=== PATIENT | female | born 1955 | race Caucasian/White ===

== ENCOUNTER 2021-08-02 18:38 | Inpatient (IN) | payer MEDICARE, MEDICAID ==
[~2021-08-02] VITALS: Ht 172.7 cm; Wt 95.3 kg
[2021-08-02] MEDS ORDERED: MILK OF MAGNESIA 400 MG/5 ML 30 ML UDC PO PRN (20:00)
[2021-08-02] MEDS ORDERED: ACETAMINOPHEN 325 MG TABLET PO PRN (20:00)
[2021-08-02] MEDS ORDERED: diphenhydrAMINE 50 MG/ML INJ (BENADRYL) IVP PRN (20:00)
[2021-08-02] MEDS ORDERED: ONDANSETRON 4 MG (ZOFRAN) ORAL DISSOLVE TAB PO PRN (20:00)
[2021-08-02] MEDS ORDERED: ANTACID SUSP 30 ML UDC (MYLANTA) PO PRN (20:00)
[2021-08-02] MEDS ORDERED: MELATONIN 3 MG TABLET PO PRN (20:00)
[2021-08-02] MEDS ORDERED: LACTULOSE SYRUP 10GM/15ML (ENULOSE) 30ML UDC PO PRN (20:00)
[2021-08-02] MEDS ORDERED: BISACODYL 10 MG SUPP (DULCOLAX) PR PRN (20:00)
[2021-08-02] MEDS ORDERED: PATIENT MAY USE OWN MEDS, ALL PO SCH (20:00)
[2021-08-02] MEDS ORDERED: polyethylene glycoL POWDER 17 GM (MIRALAX) PACK PO PRN (20:00)
[2021-08-02] MEDS ORDERED: CALCIUM CARBONATE 500 MG (TUMS) TAB.CHEW PO PRN (20:00)
[2021-08-02] MEDS ORDERED: diphenhydrAMINE 25 MG TAB (BENADRYL) PO PRN (20:00)
[2021-08-02] MEDS ORDERED: HYDROcodone/APAP 5 MG/325 MG (LORTAB) TAB PO PRN (20:00)
[2021-08-02] MEDS ORDERED: HYDROmorphone 2 MG/ML VIAL (DILAUDID) IVP PRN (20:00)
[2021-08-02] MEDS: DOCUSATE SODIUM 100 MG (COLACE) CAP PO SCH (22:51)
[2021-08-02] MEDS: SENNOSIDES 8.6 MG (SENOKOT) TAB PO SCH (22:52)
[2021-08-02] MEDS ORDERED: DIAZ2TAB2 PO (22:57)
[2021-08-02] MEDS ORDERED: ATEN50TA PO (22:57)
[2021-08-02] MEDS ORDERED: LEVO88CA4 PO (22:58)
[2021-08-02] MEDS ORDERED: RABE20TA30 PO (22:58)
[2021-08-02] MEDS ORDERED: PROM25TA14 PO (22:58)
[2021-08-03] MEDS: FAMOTIDINE 20 MG (PEPCID) TABLET PO SCH ×3 (01:07→21:37)
[2021-08-03] MEDS: guaiFENesin (MUCINEX) 600 MG TAB PO SCH ×3 (01:07→21:37)
[2021-08-03] MEDS: inSUlin ASPART (NovoLOG) 1 UNIT/0.01 ML (CHARGE PER UNIT) SC SCH ×5 (01:10→21:38)
[2021-08-03 05:31] LABS: BASOPHILS % (AUTO) 0 % (0-10); EOSINOPHILS % (AUTO) 0 % (0-10); HEMATOCRIT 38 % (35-52); HEMOGLOBIN 12.8 g/dL (11.5-16.0); LYMPHOCYTES # (AUTO) 0.5 10^3/uL (1.0-4.0); LYMPHOCYTES % (AUTO) 23 % (12-44); MEAN CORPUSCULAR HEMOGLOBIN 28 pg (25-34); MEAN CORPUSCULAR HGB CONC 34 g/dL (32-36); MEAN CORPUSCULAR VOLUME 84 fL (80-99); MEAN PLATELET VOLUME 10.1 fL (9.0-12.2); MONOCYTES # (AUTO) 0.3 10^3/uL (0.0-1.0); MONOCYTES % (AUTO) 11 % (0-12); NEUTROPHILS # (AUTO) 1.5 10^3/uL (1.8-7.8); NEUTROPHILS % (AUTO) 66 % (42-75); PLATELET COUNT 262 10^3/uL (130-400); WHITE BLOOD COUNT 2.3 10^3/uL (4.3-11.0)
[2021-08-03 05:41] LABS: ALBUMIN 3.3 GM/DL (3.2-4.5)
[2021-08-03 05:42] LABS: POTASSIUM 3.5 MMOL/L (3.6-5.0)
[2021-08-03 05:43] LABS: CALCIUM 8.5 MG/DL (8.5-10.1)
[2021-08-03 05:44] LABS: TOTAL PROTEIN 6.5 GM/DL (6.4-8.2)
[2021-08-03 05:46] LABS: BILIRUBIN,TOTAL 0.7 MG/DL (0.1-1.0)
[2021-08-03 05:48] LABS: CREATININE SERUM 0.62 MG/DL (0.60-1.30)
--- NOTE | 2021-08-03 06:15 | History & Physical-Hospitalist ---
History of Present Illness HPI/Chief Complaint Chief complaint: Acute hypoxic respiratory failure History of present illness: This is a 65-year-old white female who presented from [facility] due to their diversion status with shortness of breath and cough and fever. She is unvaccinated. She was placed on 4 L of oxygen with good results. She is on day #9 today of COVID. She was placed on protocol and will be monitored closely. Her cough is significant and she desats with cough and any activity. High risk for intubation. Source: patient, RN/MD Exam Limitations: clinical condition Date Seen 08/03/21 Time Seen by a Provider: 10:00 Attending Physician Marguerite Styles DO PCP No,Local Physician Referring Physician Date of Admission Aug 02, 2021 at 22:24 Home Medications & Allergies Home Medications Reviewed patient Home Medication Reconciliation performed by pharmacy medication reconciliations process mold technician and/or nursing. Patients Allergies have been reviewed. Allergies Allergies Coded Allergies Penicillins (Verified Allergy, Unknown, 08/02/21) Sulfa (Sulfonamide Antibiotics) (Verified Allergy, Unknown, 08/02/21) erythromycin base (Verified Allergy, Unknown, 08/02/21) morphine (Verified Allergy, Unknown, 08/02/21) Past Osjliim-Qzcfwk-Upypbs Hx Patient Social History Marrital Status: single Employed/Student: retired Tobacco Use?: No Smoking Status: Former Smoker Smokeless Tobacco Frequency: Never a User Use of E-Cig and/or Vaping dev: No Substance use?: No Alcohol Use?: No Pt feels they are or have been: No Immunizations Up To Date Date of Influenza Vaccine: Jul 21, 2021 Current Status status: No status: No Advance Directives: No Communicates: Verbally Primary Language: Spanish Preferred Spoken Language: Spanish Is interpretation needed?: No Sensory deficits: Vision impairment Implanted or Applied Medical D: None Past Medical History Gastroesophageal Reflux Hypothyroidsim Anxiety, Depression Review of Systems Constitutional: see HPI, dizziness, fever, malaise, weakness EENTM: no symptoms reported Respiratory: dyspnea on exertion, short of breath Cardiovascular: no symptoms reported Gastrointestinal: no symptoms reported Genitourinary: no symptoms reported Musculoskeletal: no symptoms reported Skin: no symptoms reported Psychiatric/Neurological: No Symptoms Reported All Other Systems Reviewed Negative Unless Noted: Yes Physical Exam Physical Exam Vital Signs Vital Signs - First Documented 08/02/21 08/02/21 22:25 22:58 Pulse 63 Resp 22 B/P (MAP) 137/66 Pulse Ox 93 Capillary Refill : Height, Weight, BMI Height: '" Weight: lbs. oz. kg; 30.67 BMI Method: General Appearance: Anxious, Chronically ill, Mild Distress, Obese Eyes: Right Eye Normal Inspection, Right Eye PERRL HEENT: PERRL/EOMI, Normal ENT Inspection, Pharynx Normal, Moist Mucous Membranes Neck: Full Range of Motion, Normal Inspection, Non Tender Respiratory: Chest Non Tender, No Respiratory Distress, Accessory Muscle Use, Crackles, Decreased Breath Sounds, Wheezing Cardiovascular: Regular Rate, Rhythm, No Edema, No Gallop, No JVD, No Murmur, Normal Peripheral Pulses Gastrointestinal: Normal Bowel Sounds, No Organomegaly, No Pulsatile Mass, Non Tender, Soft Back: Normal Inspection, No CVA Tenderness, No Vertebral Tenderness Extremity: Normal Capillary Refill, Normal Inspection, Normal Range of Motion, Non Tender, No Calf Tenderness, No Pedal Edema Neurologic/Psychiatric: Alert, Oriented x3, No Motor/Sensory Deficits, Normal Mood/Affect Skin: Normal Color, Warm/Dry Lymphatic: No Adenopathy Results Results/Procedures Labs Laboratory Tests 08/03/21 05:17 Patient resulted labs reviewed. Assessment/Plan Admission Diagnosis Assessment: Acute hypoxic respiratory failure COVID-19 pneumonia Hypothyroidism GERD Obesity Former smoker Anxiety Plan: Oxygen COVID protocol High risk for intubation If progresses and declines will need Actemra Admission Status: Inpatient Order (span 2 midnights) Reason for Inpatient Admission: Respiratory failure MARGUERITE STYLES DO Aug 03, 2021 06:15
[2021-08-03] MEDS: ENOXAPARIN 40 MG/0.4 ML (LOVENOX) SYR SC SCH (06:56)
[2021-08-03] MEDS: RT-ALBUTEROL HFA 8.5 GM INHALER IH SCH ×4 (07:28→19:05)
[2021-08-03 07:34] LABS: ABG BASE EXCESS 0.3 MMOL/L (-2.5-2.5); ABG OXYGEN SATURATION 90 % (94-100); ABG PCO2 34 MMHG (35-45); ABG PH 7.46 (7.37-7.43); ABG PO2 52 MMHG (79-93); ABG TCO2 24.9 MMOL/L (21.0-31.0)
[2021-08-03 07:36] LABS: ALLENS TEST YES-POS; INSPIRED O2 6 L; PATIENT TEMP 36.4; VENTILATOR NO
--- NOTE | 2021-08-03 07:45 | Diagnostic Imaging Report ---
CHEST 1 VIEW, AP/PA ONLY Indication: Pneumonia Comparison: None available. Findings: Multifocal irregular consolidations are present in both lungs, with a peripheral predominance. No pleural effusion or pneumothorax. Low lung volumes. Posterior lower lobes are poorly evaluated by portable radiography. Normal cardiac silhouette. Impression: 1. Bilateral multifocal pulmonary opacities are likely the basis of pneumonia. A component of underlying pulmonary fibrosis could be present. Advise followup PA and lateral chest radiographs in 4 weeks after appropriate medical management to ensure resolution. Dictated by: Dictated on workstation # [id number]
[2021-08-03] MEDS: DOCUSATE SODIUM 100 MG (COLACE) CAP PO SCH ×2 (10:33→21:37)
[2021-08-03] MEDS: KCL 10 MEQ TAB (MICRO K) PO SCH (10:33)
[2021-08-03] MEDS: SENNOSIDES 8.6 MG (SENOKOT) TAB PO SCH ×2 (10:33→21:37)
[2021-08-03] MEDS: NS IV 1000 ML 1,000 ML IV SCH (12:39)
[2021-08-03] MEDS ORDERED: guaiFENesin/CODEINE (ROBITUSSIN AC) 10ML UDC PO SCH (13:00)
[2021-08-04] MEDS: ONDANSETRON 4 MG/2 ML (SDV) Z0FRAN IV PRN (00:46)
[2021-08-04] MEDS: NS IV 1000 ML 1,000 ML IV SCH ×2 (00:51→13:22)
[2021-08-04 04:59] LABS: BASOPHILS % (AUTO) 0 % (0-10); EOSINOPHILS % (AUTO) 0 % (0-10); HEMATOCRIT 37 % (35-52); HEMOGLOBIN 12.4 g/dL (11.5-16.0); LYMPHOCYTES # (AUTO) 0.6 10^3/uL (1.0-4.0); LYMPHOCYTES % (AUTO) 11 % (12-44); MEAN CORPUSCULAR HEMOGLOBIN 29 pg (25-34); MEAN CORPUSCULAR HGB CONC 33 g/dL (32-36); MEAN CORPUSCULAR VOLUME 85 fL (80-99); MEAN PLATELET VOLUME 10.2 fL (9.0-12.2); MONOCYTES # (AUTO) 0.3 10^3/uL (0.0-1.0); MONOCYTES % (AUTO) 6 % (0-12); NEUTROPHILS # (AUTO) 4.2 10^3/uL (1.8-7.8); NEUTROPHILS % (AUTO) 83 % (42-75); PLATELET COUNT 343 10^3/uL (130-400)
[2021-08-04 05:16] LABS: POTASSIUM 3.2 MMOL/L (3.6-5.0)
[2021-08-04 05:17] LABS: CALCIUM 8.3 MG/DL (8.5-10.1)
[2021-08-04 05:18] LABS: TOTAL PROTEIN 5.7 GM/DL (6.4-8.2)
[2021-08-04 05:20] LABS: BILIRUBIN,TOTAL 0.5 MG/DL (0.1-1.0)
[2021-08-04 05:22] LABS: CREATININE SERUM 0.69 MG/DL (0.60-1.30)
[2021-08-04] MEDS: KCL 10 MEQ TAB (MICRO K) PO SCH (06:41)
[2021-08-04] MEDS: inSUlin ASPART (NovoLOG) 1 UNIT/0.01 ML (CHARGE PER UNIT) SC SCH ×4 (06:41→21:13)
[2021-08-04] MEDS: ENOXAPARIN 40 MG/0.4 ML (LOVENOX) SYR SC SCH (06:41)
[2021-08-04] MEDS: RT-ALBUTEROL HFA 8.5 GM INHALER IH SCH ×4 (07:07→20:57)
[2021-08-04] MEDS: DOCUSATE SODIUM 100 MG (COLACE) CAP PO SCH ×2 (07:37→21:13)
[2021-08-04] MEDS ORDERED: dilTIAZem DRIP PRE-MIX 125 ML IV ONE (07:38)
[2021-08-04] MEDS: SENNOSIDES 8.6 MG (SENOKOT) TAB PO SCH ×2 (07:38→21:13)
[2021-08-04] MEDS ORDERED: dilTIAZem DRIP PRE-MIX 125 ML IV SCH (07:45)
[2021-08-04] MEDS: guaiFENesin (MUCINEX) 600 MG TAB PO SCH ×2 (08:10→21:12)
[2021-08-04] MEDS: FAMOTIDINE 20 MG (PEPCID) TABLET PO SCH ×2 (08:10→21:12)
--- NOTE | 2021-08-04 09:25 | Consultation-Cardiology ---
HPI-Cardiology Cardiology Consultation: Date of Consultation 08/04/21 Time Seen by a Provider: 08:50 Date of Admission 08-02-21 Attending Physician Jesusita Castillo MD Admitting Physician No,Local Physician Consulting Physician Nicole Wallace MD HPI: Chief Complaint: A-fib with RVR Ms. Mart is a 65 yr old female admitted to [facility] with COVID pneumonia. This morning she had an episode of a-fib with RVR; new onset. She reports she began to feel unwell approx 4-5 days ago. She states she had increasing SOB. She presented to the walk in clinic and was found to test positive for COVID. She reports frequent cough of thick sputum. She reports occ episodes of palpitations which she feels are only r/t to high caffeine intake. She denies any c/o CP. She does not report any c/o palpitations this morning. No c/o LE swelling. No c/o n/v/d. She was started on a Cardizem gtt and had converted to SR at the time of this exam. Review of Systems-Cardiology Review of Systems Constitutional: chills, fever Eyes: No vision change Ears/Nose/Throat: No epistaxis, No recent hearing loss Respiratory: As described under HPI Gastrointestinal: No constipation, No diarrhea, No nausea, No vomiting Genitourinary: No dysuria Musculoskeletal: no symptoms reported Skin: No rash on exposed areas, No ulcerations on exposed areas Psychiatric/Neurological: No seizure, No focal weakness, No syncope Hematologic: No bleeding abnormalities All Other Systems Reviewed Negative Unless Noted: Yes MYI-Smbffi-Qjilaj Hx Patient Social History Marrital Status: single Employed/Student: retired Smoking Status: Former Smoker Have you traveled recently?: No Alcohol Use?: No Pt feels they are or have been: No Immunizations Up To Date Date of Influenza Vaccine: Jul 21, 2021 Past Medical History PMH As described under Assessment. Family Medical History Family Medical History: She reports her mother had CHF. She reports her father had CAD, CVA and pacemaker. She reports a sister who had a CVA in the past. Allergies and Home Medications Allergies Coded Allergies: Penicillins (Verified Allergy, Unknown, 08/02/21) Sulfa (Sulfonamide Antibiotics) (Verified Allergy, Unknown, 08/02/21) erythromycin base (Verified Allergy, Unknown, 08/02/21) morphine (Verified Allergy, Unknown, 08/02/21) Patient Home Medication List Home Medication List Reviewed: Yes Atenolol (Atenolol) 50 Mg Tablet, 50 MG PO HS, (Reported) Entered as Reported by: DWAYNE GUERRA on 08/02/212256 Last Action: Reviewed Diazepam (Diazepam) 2 Mg Tablet, 2 MG PO DAILY PRN for ANXIETY, (Reported) Entered as Reported by: DWAYNE GUERRA on 08/02/212256 Last Action: Reviewed Diphenhydramine HCl (Benadryl) 25 Mg Capsule, 25-50 MG PO Q6H PRN for ALLERGY SYMPTOMS, (Reported) Entered as Reported by: FELIPE LOZADA on 08/04/211011 Last Action: Reviewed Doxycycline Hyclate (Doxycycline Hyclate) 100 Mg Capsule, 100 MG PO BID, (Reported) Entered as Reported by: FELIPE LOZADA on 08/04/211011 Last Action: Reviewed Levothyroxine Sodium (Levothyroxine Sodium) 88 Mcg Tablet, 88 MCG PO DAILY, (Reported) Entered as Reported by: FELIPE LOZADA on 08/04/211011 Last Action: Reviewed Lisinopril (Lisinopril) 20 Mg Tablet, 20 MG PO DAILY, (Reported) Entered as Reported by: FELIPE LOZADA on 08/04/211011 Last Action: Reviewed Rabeprazole Sodium (Rabeprazole Sodium) 20 Mg Tablet.dr, 20 MG PO DAILY, (Reported) Entered as Reported by: DWAYNE GUERRA on 08/02/212257 Last Action: Reviewed Discontinued Medications Levothyroxine Sodium (Levothyroxine) 88 Mcg Capsule, 88 MCG PO DAILY, (Reported) Discontinued Reason: No Longer Taking Entered as Reported by: DWAYNE GUERRA on 08/02/212257 Last Action: Discontinued Promethazine HCl (Promethazine Tablet) 25 Mg Tablet, 12.5 MG PO Q12H PRN for NAUSEA/VOMITING, (Reported) Discontinued Reason: No Longer Taking Entered as Reported by: DWAYNE GUERRA on 08/02/212257 Last Action: Discontinued Physical Exam-Cardiology Physical Exam Vital Signs/I&O 08/04/21 08/05/21 08/05/21 08/05/21 21:24 00:00 01:00 04:00 Pulse 70 57 55 70 Resp 23 B/P (MAP) 144/75 135/78 Pulse Ox 98 O2 Delivery Vapotherm Vapotherm O2 Flow Rate 25.00 25.00 70.00 70.00 08/05/21 08/05/21 08/05/21 07:01 08:00 08:02 Temp 36.2 Pulse 48 112 Resp 18 B/P (MAP) 116/81 Pulse Ox 97 95 O2 Delivery Vapotherm Vapotherm O2 Flow Rate 25.00 25.00 60.00 FiO2 70 08/05/21 00:00 Intake Total 1725 ml Output Total 1275 ml Balance 450 ml Capillary Refill : Less Than 3 Seconds Constitutional: AAO x 3, well-developed, well-nourished HEENT: hearing is well preserved, oral hygience is good Neck: No carotid bruit; carotid pulses are 2 + bilaterally Respiratory: No accessory muscle use, No respiratory distress; chest expansion is symmetric, chest is bilaterally symmetric, other (diminished breath sounds throughout) Cardiovascular: regular rate-rhythm; No JVD; S1 and S2 Gastrointestinal: No tender; soft, round, audible bowel sounds Extremities: no lower extremity edema bilateral Neurologic/Psychiatric: grossly intact (moves all extremities) Skin: No rash on exposed areas, No ulcerations on exposed areas Data Review Labs Laboratory Tests 08/04/21 10:19: Glucometer 156H 08/04/21 16:13: Glucometer 171H 08/05/21 04:15: White Blood Count 4.4, Red Blood Count 4.12, Hemoglobin 11.6, Hematocrit 35, Mean Corpuscular Volume 86, Mean Corpuscular Hemoglobin 28, Mean Corpuscular Hemoglobin Concent 33, Red Cell Distribution Width 13.2, Platelet Count 337, Mean Platelet Volume 9.8, Immature Granulocyte % (Auto) 1, Neutrophils (%) (Auto) 76H, Lymphocytes (%) (Auto) 14, Monocytes (%) (Auto) 9, Eosinophils (%) (Auto) 0, Basophils (%) (Auto) 0, Neutrophils # (Auto) 3.4, Lymphocytes # (Auto) 0.6L, Monocytes # (Auto) 0.4, Eosinophils # (Auto) 0.0, Basophils # (Auto) 0.0, Immature Granulocyte # (Auto) 0.0, Sodium Level 143, Potassium Level 4.0, Chloride Level 111H, Carbon Dioxide Level 20L, Anion Gap 12, Blood Urea Nitrogen 9, Creatinine 0.58L, Estimat Glomerular Filtration Rate 99, BUN/Creatinine Ratio 16, Glucose Level 124H, Calcium Level 7.8L, Corrected Calcium 8.8, Magnesium Level 2.2, Total Bilirubin 0.6, Aspartate Amino Transf (AST/SGOT) 41H, Alanine Aminotransferase (ALT/SGPT) 57H, Alkaline Phosphatase 60, Total Protein 5.5L, Albumin 2.8L, Thyroid Stimulating Hormone (TSH) 0.69 Radiology NAME: YAMEL MART [facility] REC#: [id number] PT STATUS: ADM IN : 1955 PHYSICIAN: MADDIE ÁLVAREZ DO ADMIT DATE: 08/02/21/[facility] Signed Date of Exam:08/03/21 CHEST 1 VIEW, AP/PA ONLY CHEST 1 VIEW, AP/PA ONLY Indication: Pneumonia Comparison: None available. Findings: Multifocal irregular consolidations are present in both lungs, with a peripheral predominance. No pleural effusion or pneumothorax. Low lung volumes. Posterior lower lobes are poorly evaluated by portable radiography. Normal cardiac silhouette. Impression: 1. Bilateral multifocal pulmonary opacities are likely the basis of pneumonia. A component of underlying pulmonary fibrosis could be present. Advise followup PA and lateral chest radiographs in 4 weeks after appropriate medical management to ensure resolution. Dictated by: Dictated on workstation # [id number] Dict: 08/03/21 0742 Trans: 08/03/21 0859 [facility] [id number] Interpreted by: LAST LEW MD Electronically signed by: LAST LEW MD 08/03/21 0859 A/P-Cardiology Assessment/Admission Diagnosis New onset a-fib with RVR - first documented on [facility] 08-04-21 COVID pneumonia - management per medical services Hypokalemia - replace HTN - controlled Hypothyroidism - replacement tx Tobaccoism - 1 cig/day - cessation advised Surgical hx - vaginal wall repair - cholecystectomy - hysterectomy Family h/o CAD - Mother, Father, Sister Discussion and Recomendations New onset a-fib with RVR - converted to SR with Cardizem gtt - change to oral Start OAC with Eliquis for stroke prophylaxis Replace electrolytes Monitor lab closely Management of COVID pneumonia is per medical services Echocardiogram to eval structure and function Further recs will be based on her hospital course We would like to thank medical services for this consult TERA SINGLETARY Aug 04, 2021 09:25
[2021-08-04] MEDS ORDERED: KCL 20 MEQ TAB (K-DUR) PO NR ×2 (10:00→14:00)
[2021-08-04] MEDS ORDERED: MAGNESIUM 1 GM/100 ML IVPB 100 ML IV NR (10:00)
[2021-08-04] MEDS ORDERED: DIPH25CA79 PO (10:12)
[2021-08-04] MEDS ORDERED: LEVO88TA54 PO (10:12)
[2021-08-04] MEDS ORDERED: DOXY100C5 PO (10:12)
[2021-08-04] MEDS ORDERED: LISI20TA26 PO (10:12)
[2021-08-04] MEDS: APIXABAN 5 MG (ELIQUIS) TABLET PO SCH ×2 (10:15→21:12)
[2021-08-04] MEDS ORDERED: TOCILIZUMAB INJECTION (NON-FOR 800 MG in NS (IVPB) 60 ML IV ONE (13:00)
--- NOTE | 2021-08-04 15:10 | Consultation-Cardiology ---
HPI-Cardiology Cardiology Consultation: Date of Consultation 08/04/21 Time Seen by a Provider: 10:00 Date of Admission Attending Physician Jesusita Castillo MD Admitting Physician No,Local Physician Consulting Physician MAUREEN REBOLLAR MD, MA, FACP, FACC, FSCAI, CCDS HPI: Chief Complaint: A-fib with RVR Ms. Mart is a 65 yr old female admitted to [facility] with COVID pneumonia. This morning she had an episode of a-fib with RVR; new onset. She reports she began to feel unwell approx 4-5 days ago. She states she had increasing SOB. She presented to the walk in clinic and was found to test positive for COVID. She reports frequent cough of thick sputum. She reports occ episodes of palpitations which she feels are only r/t to high caffeine intake. She denies any c/o CP. She does not report any c/o palpitations this morning. No c/o LE swelling. No c/o n/v/d. She was started on a Cardizem gtt and had converted to SR at the time of this exam. Review of Systems-Cardiology Review of Systems Constitutional: chills, fever Eyes: No vision change Ears/Nose/Throat: No epistaxis, No recent hearing loss Respiratory: As described under HPI Gastrointestinal: No constipation, No diarrhea, No nausea, No vomiting Genitourinary: No dysuria Musculoskeletal: no symptoms reported Skin: No rash on exposed areas, No ulcerations on exposed areas Psychiatric/Neurological: No seizure, No focal weakness, No syncope Hematologic: No bleeding abnormalities All Other Systems Reviewed Negative Unless Noted: Yes ALO-Byccwb-Oohhtc Hx Patient Social History Marrital Status: single Employed/Student: retired Smoking Status: Former Smoker Have you traveled recently?: No Alcohol Use?: No Pt feels they are or have been: No Immunizations Up To Date Date of Influenza Vaccine: Jul 21, 2021 Past Medical History PMH As described under Assessment. Family Medical History Family Medical History: She reports her mother had CHF. She reports her father had CAD, CVA and pacemaker. She reports a sister who had a CVA in the past. Allergies and Home Medications Allergies Coded Allergies: Penicillins (Verified Allergy, Unknown, 08/02/21) Sulfa (Sulfonamide Antibiotics) (Verified Allergy, Unknown, 08/02/21) erythromycin base (Verified Allergy, Unknown, 08/02/21) morphine (Verified Allergy, Unknown, 08/02/21) Patient Home Medication List Home Medication List Reviewed: Yes Atenolol (Atenolol) 50 Mg Tablet, 50 MG PO HS, (Reported) Entered as Reported by: DWAYNE GUERRA on 08/02/212256 Last Action: Reviewed Diazepam (Diazepam) 2 Mg Tablet, 2 MG PO DAILY PRN for ANXIETY, (Reported) Entered as Reported by: DWAYNE GUERRA on 08/02/212256 Last Action: Reviewed Diphenhydramine HCl (Benadryl) 25 Mg Capsule, 25-50 MG PO Q6H PRN for ALLERGY SYMPTOMS, (Reported) Entered as Reported by: FELIPE LOZADA on 08/04/211011 Last Action: Reviewed Doxycycline Hyclate (Doxycycline Hyclate) 100 Mg Capsule, 100 MG PO BID, (Reported) Entered as Reported by: FELIPE LOZADA on 08/04/211011 Last Action: Reviewed Levothyroxine Sodium (Levothyroxine Sodium) 88 Mcg Tablet, 88 MCG PO DAILY, (Reported) Entered as Reported by: FELIPE LOZADA on 08/04/211011 Last Action: Reviewed Lisinopril (Lisinopril) 20 Mg Tablet, 20 MG PO DAILY, (Reported) Entered as Reported by: FELIPE LOZADA on 08/04/211011 Last Action: Reviewed Rabeprazole Sodium (Rabeprazole Sodium) 20 Mg Tablet.dr, 20 MG PO DAILY, (Reported) Entered as Reported by: DWAYNE GUERRA on 08/02/212257 Last Action: Reviewed Discontinued Medications Levothyroxine Sodium (Levothyroxine) 88 Mcg Capsule, 88 MCG PO DAILY, (Reported) Discontinued Reason: No Longer Taking Entered as Reported by: DWAYNE GUERRA on 08/02/212257 Last Action: Discontinued Promethazine HCl (Promethazine Tablet) 25 Mg Tablet, 12.5 MG PO Q12H PRN for NAUSEA/VOMITING, (Reported) Discontinued Reason: No Longer Taking Entered as Reported by: DWAYNE GUERRA on 08/02/212257 Last Action: Discontinued Physical Exam-Cardiology Physical Exam Vital Signs/I&O 08/04/21 08/04/21 08/04/21 08/04/21 04:00 04:00 07:00 07:06 Temp 36.7 Pulse 71 118 Resp 9 B/P (MAP) 163/97 Pulse Ox 96 86 O2 Delivery High Flow N/C High Flow N/C O2 Flow Rate 8.00 15.00 08/04/21 08/04/21 08/04/21 08/04/21 07:07 08:00 08:16 09:00 Temp 36.2 Pulse 112 86 Resp 24 B/P (MAP) 119/95 Pulse Ox 91 97 O2 Delivery Vapotherm Vapotherm Nasal Cannula O2 Flow Rate 40.00 40.00 6.00 100.00 FiO2 100 08/04/21 08/04/21 08/04/21 08/04/21 11:44 11:46 12:44 14:37 Pulse 74 Pulse Ox 99 96 O2 Delivery Vapotherm Vapotherm Vapotherm O2 Flow Rate 80.00 25.00 25.00 FiO2 35 80 80 08/04/21 14:38 FiO2 70 08/03/21 23:59 Intake Total 650 ml Output Total 1 ml Balance 649 ml Capillary Refill : Less Than 3 Seconds Constitutional: AAO x 3, well-developed, well-nourished HEENT: hearing is well preserved, oral hygience is good Neck: No carotid bruit; carotid pulses are 2 + bilaterally Respiratory: No accessory muscle use, No respiratory distress; chest expansion is symmetric, chest is bilaterally symmetric, other (diminished breath sounds throughout) Cardiovascular: regular rate-rhythm; No JVD; S1 and S2 Gastrointestinal: No tender; soft, round, audible bowel sounds Extremities: no lower extremity edema bilateral Neurologic/Psychiatric: grossly intact (moves all extremities) Skin: No rash on exposed areas, No ulcerations on exposed areas Data Review Labs Laboratory Tests 08/03/21 15:55: Glucometer 122H 08/03/21 20:30: Glucometer 160H 08/04/21 00:45: White Blood Count 5.0, Red Blood Count 4.35, Hemoglobin 12.4, Hematocrit 37, Mean Corpuscular Volume 85, Mean Corpuscular Hemoglobin 29, Mean Corpuscular Hemoglobin Concent 33, Red Cell Distribution Width 13.0, Platelet Count 343, Mean Platelet Volume 10.2, Immature Granulocyte % (Auto) 0, Neutrophils (%) (Auto) 83H, Lymphocytes (%) (Auto) 11L, Monocytes (%) (Auto) 6, Eosinophils (%) (Auto) 0, Basophils (%) (Auto) 0, Neutrophils # (Auto) 4.2, Lymphocytes # (Auto) 0.6L, Monocytes # (Auto) 0.3, Eosinophils # (Auto) 0.0, Basophils # (Auto) 0.0, Immature Granulocyte # (Auto) 0.0, Sodium Level 140, Potassium Level 3.2L, Chloride Level 108H, Carbon Dioxide Level 19L, Anion Gap 13, Blood Urea Nitrogen 12, Creatinine 0.69, Estimat Glomerular Filtration Rate 95, BUN/Creatinine Ratio 17, Glucose Level 156H, Calcium Level 8.3L, Corrected Calcium 9.1, Total Bilirubin 0.5, Aspartate Amino Transf (AST/SGOT) 52H, Alanine Aminotransferase (ALT/SGPT) 55, Alkaline Phosphatase 67, Total Protein 5.7L, Albumin 3.0L 08/04/21 04:30: D-Dimer 1.05H 08/04/21 10:19: Glucometer 156H A/P-Cardiology Assessment/Admission Diagnosis New onset a-fib with RVR - first documented on tele of 08-04-21 COVID pneumonia - management per medical services Hypokalemia - replace HTN - controlled Hypothyroidism - replacement tx Tobaccoism - 1 cig/day - cessation advised Surgical hx - vaginal wall repair - cholecystectomy - hysterectomy Family h/o CAD - Mother, Father, Sister Discussion and Recomendations New onset a-fib with RVR - converted to SR with Cardizem gtt - change to oral Start OAC with Eliquis for stroke prophylaxis Replace electrolytes Monitor lab closely Management of COVID pneumonia is per medical services Echocardiogram to eval structure and function Further recs will be based on her hospital course We would like to thank medical services for this consult Physician Assessment Physician Assessment I evaluated the patient collaboratively with the Cardiology team. To limit exposure of the team to COVID, only one person performed the physical exam (Amy Hedrick APRN). Our Assessment and Recommendations are listed above MAUREEN REBOLLAR MD FACP [facility] CCDS Aug 04, 2021 15:10
--- NOTE | 2021-08-04 16:09 | Progress Note - Hospitalist ---
Subjective HPI/CC On Admission Date Seen by Provider: Aug 04, 2021 Time Seen by Provider: 11:00 Chief complaint: Acute hypoxic respiratory failure History of present illness: This is a 65-year-old white female who presented from [facility] due to their diversion status with shortness of breath and cough and fever. She is unvaccinated. She was placed on 4 L of oxygen with good results. She is on day #9 today of COVID. She was placed on protocol and will be monitored closely. Her cough is significant and she desats with cough and any activity. High risk for intubation. Subjective/Events-last exam She is wearing Vapotherm. She is feeling better but was short of breath earlier. She has a cough. Objective Exam Vital Signs Vital Signs Date Time Temp Pulse Resp B/P (MAP) Pulse Ox O2 Delivery O2 Flow Rate FiO2 08/04/21 14:38 70 08/04/21 14:37 96 Vapotherm 25.00 08/04/21 12:44 74 08/04/21 08:00 36.2 24 119/95 Capillary Refill : Less Than 3 Seconds General Appearance: No Apparent Distress, Obese Respiratory: Lungs Clear, Normal Breath Sounds, No Respiratory Distress Cardiovascular: Regular Rate, Rhythm, No Edema, No Murmur Gastrointestinal: Normal Bowel Sounds, Non Tender, Soft Extremity: Normal Inspection, Non Tender, No Pedal Edema Neurologic/Psychiatric: Alert, Oriented x3, No Motor/Sensory Deficits, Normal Mood/Affect Skin: Normal Color, Warm/Dry Results/Procedures Lab Laboratory Tests 08/04/21 00:45 Patient resulted labs reviewed. Imaging: Reviewed Imaging Report Assessment/Plan Assessment and Plan Assess & Plan/Chief Complaint Acute respiratory failure due to COVID-19 Transitioned to Vapotherm Decadron Discussed Actemra, risks/benefits/EUA use, patient agrees AFib with RVR Cardiology consulted Transitioned off Cardizem gtt Oral Cardizem Eliquis HTN Hypothyroidism GERD Obesity Critical Care Critically Ill Patient Diagnosis/Problems Diagnosis/Problems (1) Acute respiratory failure due to COVID-19 Status: Acute (2) Atrial fibrillation with RVR Status: Acute (3) HTN (hypertension) Status: Chronic (4) GERD (gastroesophageal reflux disease) Status: Chronic (5) Hypothyroidism Status: Chronic (6) Obesity Status: Chronic GABE SHARPE MD Aug 04, 2021 16:09
[2021-08-04] MEDS: ACYCLOVIR 400 MG TABLET (ZOVIRAX) PO SCH (21:12)
[2021-08-05] MEDS: oxyCODONE ER 10 MG (OxyCONTIN CR) TAB PO SCH ×3 (01:25→20:51)
[2021-08-05] MEDS: NS IV 1000 ML 1,000 ML IV SCH ×3 (01:26→20:53)
[2021-08-05 04:28] LABS: BASOPHILS % (AUTO) 0 % (0-10); EOSINOPHILS % (AUTO) 0 % (0-10); HEMATOCRIT 35 % (35-52); HEMOGLOBIN 11.6 g/dL (11.5-16.0); LYMPHOCYTES # (AUTO) 0.6 10^3/uL (1.0-4.0); LYMPHOCYTES % (AUTO) 14 % (12-44); MEAN CORPUSCULAR HEMOGLOBIN 28 pg (25-34); MEAN CORPUSCULAR HGB CONC 33 g/dL (32-36); MEAN CORPUSCULAR VOLUME 86 fL (80-99); MEAN PLATELET VOLUME 9.8 fL (9.0-12.2); MONOCYTES # (AUTO) 0.4 10^3/uL (0.0-1.0); MONOCYTES % (AUTO) 9 % (0-12); NEUTROPHILS # (AUTO) 3.4 10^3/uL (1.8-7.8); NEUTROPHILS % (AUTO) 76 % (42-75); PLATELET COUNT 337 10^3/uL (130-400); WHITE BLOOD COUNT 4.4 10^3/uL (4.3-11.0)
[2021-08-05 04:40] LABS: ALBUMIN 2.8 GM/DL (3.2-4.5)
[2021-08-05 04:42] LABS: CALCIUM 7.8 MG/DL (8.5-10.1)
[2021-08-05 04:43] LABS: TOTAL PROTEIN 5.5 GM/DL (6.4-8.2)
[2021-08-05 04:45] LABS: BILIRUBIN,TOTAL 0.6 MG/DL (0.1-1.0)
[2021-08-05 04:46] LABS: CREATININE SERUM 0.58 MG/DL (0.60-1.30)
[2021-08-05 04:49] LABS: MAGNESIUM 2.2 MG/DL (1.6-2.4)
[2021-08-05] MEDS: ONDANSETRON 4 MG/2 ML (SDV) Z0FRAN IV PRN ×2 (06:35→15:28)
[2021-08-05] MEDS: RT-ALBUTEROL HFA 8.5 GM INHALER IH SCH ×4 (08:01→18:59)
[2021-08-05] MEDS: inSUlin ASPART (NovoLOG) 1 UNIT/0.01 ML (CHARGE PER UNIT) SC SCH ×4 (09:02→20:49)
[2021-08-05] MEDS: APIXABAN 5 MG (ELIQUIS) TABLET PO SCH ×2 (09:09→20:51)
[2021-08-05] MEDS: FAMOTIDINE 20 MG (PEPCID) TABLET PO SCH ×2 (09:09→20:51)
[2021-08-05] MEDS: ACYCLOVIR 400 MG TABLET (ZOVIRAX) PO SCH ×2 (09:09→20:51)
[2021-08-05] MEDS: guaiFENesin (MUCINEX) 600 MG TAB PO SCH ×2 (09:09→20:51)
[2021-08-05] MEDS: KCL 10 MEQ TAB (MICRO K) PO SCH (09:09)
[2021-08-05] MEDS: DOCUSATE SODIUM 100 MG (COLACE) CAP PO SCH ×2 (09:10→20:51)
[2021-08-05] MEDS: SENNOSIDES 8.6 MG (SENOKOT) TAB PO SCH ×2 (09:10→20:51)
--- NOTE | 2021-08-05 17:14 | Progress Note - Hospitalist ---
Subjective HPI/CC On Admission Date Seen by Provider: Aug 05, 2021 Time Seen by Provider: 10:50 Chief complaint: Acute hypoxic respiratory failure History of present illness: This is a 65-year-old white female who presented from [facility] due to their diversion status with shortness of breath and cough and fever. She is unvaccinated. She was placed on 4 L of oxygen with good results. She is on day #9 today of COVID. She was placed on protocol and will be monitored closely. Her cough is significant and she desats with cough and any activity. High risk for intubation. Subjective/Events-last exam She is feeling better. She hasn't had much of an appetite. She is still short of breath. She still has a cough. Objective Exam Vital Signs Vital Signs Date Time Temp Pulse Resp B/P (MAP) Pulse Ox O2 Delivery O2 Flow Rate FiO2 08/05/21 15:43 35.8 68 168/80 High Flow N/C 6.00 08/05/21 15:24 93 08/05/21 12:00 21 08/05/21 10:50 40 Capillary Refill : Less Than 3 Seconds General Appearance: No Apparent Distress, Obese Respiratory: Lungs Clear, No Respiratory Distress Cardiovascular: Regular Rate, Rhythm, No Murmur Gastrointestinal: Normal Bowel Sounds, Soft Extremity: Normal Inspection, No Pedal Edema Neurologic/Psychiatric: Alert, No Motor/Sensory Deficits Skin: Normal Color, Warm/Dry Results/Procedures Lab Laboratory Tests 08/05/21 04:15 Patient resulted labs reviewed. Imaging: Reviewed Imaging Report Assessment/Plan Assessment and Plan Assess & Plan/Chief Complaint Acute respiratory failure due to COVID-19 Vapotherm requirements improving Decadron s/p Actemra AFib with RVR Cardiology consulted Mingo Pimentel HTN Hypothyroidism GERD Obesity Diagnosis/Problems Diagnosis/Problems (1) Acute respiratory failure due to COVID-19 Status: Acute (2) Atrial fibrillation with RVR Status: Acute (3) HTN (hypertension) Status: Chronic (4) GERD (gastroesophageal reflux disease) Status: Chronic (5) Hypothyroidism Status: Chronic (6) Obesity Status: Chronic GABE SHARPE MD Aug 05, 2021 17:14
--- NOTE | 2021-08-05 17:34 | Progress Note - Cardiology ---
Cardiology SOAP Progress Note Subjective: Gen weakness and malaise No cp or palp or syncope No focal weakness Shortness of breath present but modestly improved Objective: I&O/Vital Signs 08/05/21 08/05/21 08/05/21 08/05/21 07:01 08:00 08:02 08:07 Temp 36.2 Pulse 48 112 Resp 18 B/P (MAP) 116/81 Pulse Ox 97 95 O2 Delivery Vapotherm Vapotherm Vapotherm O2 Flow Rate 25.00 25.00 25.00 60.00 FiO2 70 60 08/05/21 08/05/21 08/05/21 08/05/21 08:50 10:46 10:50 11:00 Pulse Ox 92 94 92 O2 Delivery Vapotherm Vapotherm High Flow N/C O2 Flow Rate 25.00 25.00 25.00 8.00 FiO2 60 55 40 08/05/21 08/05/21 08/05/21 08/05/21 12:00 12:55 15:22 15:24 Temp 36.5 Pulse 60 59 Resp 21 B/P (MAP) 142/68 Pulse Ox 94 97 93 O2 Delivery Vapotherm High Flow N/C High Flow N/C O2 Flow Rate 25.00 8.00 6.00 60.00 08/05/21 15:43 Temp 35.8 Pulse 68 B/P (MAP) 168/80 O2 Delivery High Flow N/C O2 Flow Rate 6.00 08/05/21 00:00 Intake Total 1725 ml Output Total 1275 ml Balance 450 ml Constitutional: AAO x 3, well-developed, well-nourished Respiratory: No accessory muscle use, No respiratory distress; chest expansion is symmetric, chest is bilaterally symmetric, other (diminished breath sounds throughout) Cardiovascular: regular rate-rhythm; No JVD; S1 and S2 Gastrointestional: No tender; soft, round, audible bowel sounds Extremities: no lower extremity edema bilateral Neurologic/Psychiatric: grossly intact (moves all extremities) Skin: No rash on exposed areas, No ulcerations on exposed areas Results/Procedures: Labs Laboratory Tests 08/04/21 20:48: Glucometer 121H 08/05/21 04:15: White Blood Count 4.4, Red Blood Count 4.12, Hemoglobin 11.6, Hematocrit 35, Mean Corpuscular Volume 86, Mean Corpuscular Hemoglobin 28, Mean Corpuscular Hemoglobin Concent 33, Red Cell Distribution Width 13.2, Platelet Count 337, Mean Platelet Volume 9.8, Immature Granulocyte % (Auto) 1, Neutrophils (%) (Auto) 76H, Lymphocytes (%) (Auto) 14, Monocytes (%) (Auto) 9, Eosinophils (%) (Auto) 0, Basophils (%) (Auto) 0, Neutrophils # (Auto) 3.4, Lymphocytes # (Auto) 0.6L, Monocytes # (Auto) 0.4, Eosinophils # (Auto) 0.0, Basophils # (Auto) 0.0, Immature Granulocyte # (Auto) 0.0, Sodium Level 143, Potassium Level 4.0, Chloride Level 111H, Carbon Dioxide Level 20L, Anion Gap 12, Blood Urea Nitrogen 9, Creatinine 0.58L, Estimat Glomerular Filtration Rate 99, BUN/Creatinine Ratio 16, Glucose Level 124H, Calcium Level 7.8L, Corrected Calcium 8.8, Magnesium Level 2.2, Total Bilirubin 0.6, Aspartate Amino Transf (AST/SGOT) 41H, Alanine Aminotransferase (ALT/SGPT) 57H, Alkaline Phosphatase 60, Total Protein 5.5L, Albumin 2.8L, Thyroid Stimulating Hormone (TSH) 0.69 08/05/21 10:42: Glucometer 112H 08/05/21 15:50: Glucometer 135H Laboratory Tests 08/04/21 00:45 08/05/21 04:15 A/P: Assessment: PAF - first documented on tele of 08-04-21 - currently NSR COVID pneumonia - management per medical services Hypokalemia - replace HTN - controlled Hypothyroidism - replacement tx Tobaccoism - 1 cig/day - cessation advised Surgical hx - vaginal wall repair - cholecystectomy - hysterectomy Family h/o CAD - Mother, Father, Sister Plan: Oral long-acting dilt and OAC Monitor labs and replace electrolytes as needed Management of COVID pneumonia is per medical services Echocardiogram to eval structure and function MAUREEN REBOLLAR MD FACP FAC CCDS Aug 05, 2021 17:34
[2021-08-05] MEDS ORDERED: PROMETHAZINE INJ 25 MG/ML (PHENERGAN) AMP ONE (19:42)
[2021-08-05] MEDS ORDERED: PROMETHAZINE INJ 25 MG/ML (PHENERGAN) AMP IVP PRN (19:45)
[2021-08-06] MEDS: inSUlin ASPART (NovoLOG) 1 UNIT/0.01 ML (CHARGE PER UNIT) SC SCH ×4 (05:09→21:24)
[2021-08-06] MEDS: KCL 10 MEQ TAB (MICRO K) PO SCH (05:09)
[2021-08-06] MEDS: RT-ALBUTEROL HFA 8.5 GM INHALER IH SCH ×4 (06:44→21:25)
[2021-08-06] MEDS: APIXABAN 5 MG (ELIQUIS) TABLET PO SCH ×2 (08:49→21:22)
[2021-08-06] MEDS: ACYCLOVIR 400 MG TABLET (ZOVIRAX) PO SCH ×2 (08:49→21:22)
[2021-08-06] MEDS: FAMOTIDINE 20 MG (PEPCID) TABLET PO SCH ×2 (08:49→21:22)
[2021-08-06] MEDS: guaiFENesin (MUCINEX) 600 MG TAB PO SCH ×2 (08:49→21:22)
[2021-08-06] MEDS: oxyCODONE ER 10 MG (OxyCONTIN CR) TAB PO SCH ×2 (08:50→21:22)
[2021-08-06] MEDS: DOCUSATE SODIUM 100 MG (COLACE) CAP PO SCH ×2 (08:50→19:28)
[2021-08-06] MEDS: SENNOSIDES 8.6 MG (SENOKOT) TAB PO SCH ×2 (08:50→19:28)
--- NOTE | 2021-08-06 09:25 | Progress Note - Cardiology ---
Cardiology SOAP Progress Note Subjective: Sitting up in bed No c/o CP Continues to feel SOB with freq cough No c/o palpitations Objective: I&O/Vital Signs 08/06/21 08/06/21 08/06/21 08/06/21 00:30 05:07 06:44 08:02 Temp 36.5 36.2 36.6 Pulse 51 51 63 Resp 20 20 20 B/P (MAP) 131/73 147/84 154/76 Pulse Ox 93 96 90 93 O2 Delivery High Flow N/C High Flow N/C Nasal Cannula High Flow N/C O2 Flow Rate 7.00 6.00 6.00 7.00 08/06/21 09:15 Pulse Ox 94 O2 Delivery High Flow N/C O2 Flow Rate 5.00 08/06/21 00:00 Intake Total 1100 ml Output Total 1575 ml Balance -475 ml Constitutional: AAO x 3, well-developed, well-nourished Respiratory: No accessory muscle use, No respiratory distress; chest expansion is symmetric, chest is bilaterally symmetric, other (diminished breath sounds throughout) Cardiovascular: regular rate-rhythm; No JVD; S1 and S2 Gastrointestional: No tender; soft, round, audible bowel sounds Extremities: no lower extremity edema bilateral Neurologic/Psychiatric: grossly intact (moves all extremities) Skin: No rash on exposed areas, No ulcerations on exposed areas Results/Procedures: Labs Laboratory Tests 08/05/21 15:50: Glucometer 135H 08/05/21 20:40: Glucometer 145H 08/06/21 05:06: Glucometer 126H 08/06/21 10:00: White Blood Count 4.4, Red Blood Count 4.25, Hemoglobin 12.0, Hematocrit 37, Mean Corpuscular Volume 87, Mean Corpuscular Hemoglobin 28, Mean Corpuscular Hemoglobin Concent 33, Red Cell Distribution Width 13.2, Platelet Count 385, Mean Platelet Volume 9.4, Immature Granulocyte % (Auto) 1, Neutrophils (%) (Auto) 84H, Lymphocytes (%) (Auto) 10L, Monocytes (%) (Auto) 4, Eosinophils (%) (Auto) 0, Basophils (%) (Auto) 0, Neutrophils # (Auto) 3.7, Lymphocytes # (Auto) 0.5L, Monocytes # (Auto) 0.2, Eosinophils # (Auto) 0.0, Basophils # (Auto) 0.0, Immature Granulocyte # (Auto) 0.1, Sodium Level 138, Potassium Level 3.7, Chloride Level 107, Carbon Dioxide Level 22, Anion Gap 9, Blood Urea Nitrogen 12, Creatinine 0.64, Estimat Glomerular Filtration Rate 97, BUN/Creatinine Ratio 19, Glucose Level 134H, Calcium Level 8.0L, Corrected Calcium 8.9, Total Bilirubin 0.8, Aspartate Amino Transf (AST/SGOT) 27, Alanine Aminotransferase (ALT/SGPT) 47, Alkaline Phosphatase 56, Total Protein 5.5L, Albumin 2.9L A/P: Assessment: PAF - first documented on tele of 08-04-21 - currently NSR COVID pneumonia - management per medical services Hypokalemia - replace HTN - controlled Hypothyroidism - replacement tx Tobaccoism - 1 cig/day - cessation advised Surgical hx - vaginal wall repair - cholecystectomy - hysterectomy Family h/o CAD - Mother, Father, Sister Plan: Continue Oral long-acting dilt and OAC Monitor labs and replace electrolytes as needed Management of COVID pneumonia is per medical services Physician Assessment Physician Assessment Pt evaluated collaboratively by the Cardiology team. To limit exposure to COVID 19, only one member of the team examined the patient today (Amy Hedrick APRN). Our Assessment and Plan are listed above TERA HEDRICK Aug 06, 2021 09:25 MAUREEN REBOLLAR MD FACP FAC CCDS Aug 06, 2021 11:10
[2021-08-06 10:08] LABS: BASOPHILS % (AUTO) 0 % (0-10); EOSINOPHILS % (AUTO) 0 % (0-10); HEMATOCRIT 37 % (35-52); LYMPHOCYTES # (AUTO) 0.5 10^3/uL (1.0-4.0); LYMPHOCYTES % (AUTO) 10 % (12-44); MEAN CORPUSCULAR HEMOGLOBIN 28 pg (25-34); MEAN CORPUSCULAR HGB CONC 33 g/dL (32-36); MEAN CORPUSCULAR VOLUME 87 fL (80-99); MEAN PLATELET VOLUME 9.4 fL (9.0-12.2); MONOCYTES # (AUTO) 0.2 10^3/uL (0.0-1.0); MONOCYTES % (AUTO) 4 % (0-12); NEUTROPHILS # (AUTO) 3.7 10^3/uL (1.8-7.8); NEUTROPHILS % (AUTO) 84 % (42-75); PLATELET COUNT 385 10^3/uL (130-400); WHITE BLOOD COUNT 4.4 10^3/uL (4.3-11.0)
[2021-08-06 10:21] LABS: ALBUMIN 2.9 GM/DL (3.2-4.5); POTASSIUM 3.7 MMOL/L (3.6-5.0)
[2021-08-06 10:23] LABS: TOTAL PROTEIN 5.5 GM/DL (6.4-8.2)
[2021-08-06 10:25] LABS: BILIRUBIN,TOTAL 0.8 MG/DL (0.1-1.0)
[2021-08-06 10:27] LABS: CREATININE SERUM 0.64 MG/DL (0.60-1.30)
[2021-08-06 12:16] VITALS: BP 156/75
--- NOTE | 2021-08-06 15:35 | Progress Note - Hospitalist ---
Subjective HPI/CC On Admission Date Seen by Provider: Aug 06, 2021 Time Seen by Provider: 11:00 Chief complaint: Acute hypoxic respiratory failure History of present illness: This is a 65-year-old white female who presented from [facility] due to their diversion status with shortness of breath and cough and fever. She is unvaccinated. She was placed on 4 L of oxygen with good results. She is on day #9 today of COVID. She was placed on protocol and will be monitored closely. Her cough is significant and she desats with cough and any activity. High risk for intubation. Subjective/Events-last exam She is feeling better. She is not as short of breath. Her appetite is improving. Objective Exam Vital Signs Vital Signs Date Time Temp Pulse Resp B/P (MAP) Pulse Ox O2 Delivery O2 Flow Rate FiO2 08/06/21 14:36 93 Nasal Cannula 3.00 08/06/21 12:16 36.6 61 32 08/06/21 11:28 20 156/75 Capillary Refill : Less Than 3 Seconds General Appearance: No Apparent Distress, Obese Respiratory: Lungs Clear, No Respiratory Distress Cardiovascular: Regular Rate, Rhythm, No Murmur Gastrointestinal: Normal Bowel Sounds, Soft Extremity: Normal Inspection, No Pedal Edema Neurologic/Psychiatric: Alert, Normal Mood/Affect Skin: Normal Color, Warm/Dry Results/Procedures Lab Laboratory Tests 08/06/21 10:00 Patient resulted labs reviewed. Imaging: Reviewed Imaging Report Assessment/Plan Assessment and Plan Assess & Plan/Chief Complaint Acute respiratory failure due to COVID-19 Oxygen requirements improving Decadron s/p Actemra AFib with RVR Cardiology following Cardizem Eliquis HTN Hypothyroidism GERD Obesity Diagnosis/Problems Diagnosis/Problems (1) Acute respiratory failure due to COVID-19 Status: Acute (2) Atrial fibrillation with RVR Status: Acute (3) HTN (hypertension) Status: Chronic (4) GERD (gastroesophageal reflux disease) Status: Chronic (5) Hypothyroidism Status: Chronic (6) Obesity Status: Chronic GABE SHARPE MD Aug 06, 2021 15:35
[2021-08-06] MEDS: NS IV 1000 ML 1,000 ML IV SCH ×2 (19:27→21:24)
[2021-08-07] MEDS: RT-ALBUTEROL HFA 8.5 GM INHALER IH SCH ×4 (02:44→21:54)
[2021-08-07 06:08] LABS: BASOPHILS % (AUTO) 0 % (0-10); EOSINOPHILS % (AUTO) 0 % (0-10); HEMATOCRIT 37 % (35-52); HEMOGLOBIN 12.1 g/dL (11.5-16.0); LYMPHOCYTES # (AUTO) 0.6 10^3/uL (1.0-4.0); LYMPHOCYTES % (AUTO) 11 % (12-44); MEAN CORPUSCULAR HEMOGLOBIN 28 pg (25-34); MEAN CORPUSCULAR HGB CONC 33 g/dL (32-36); MEAN CORPUSCULAR VOLUME 86 fL (80-99); MEAN PLATELET VOLUME 9.6 fL (9.0-12.2); MONOCYTES # (AUTO) 0.4 10^3/uL (0.0-1.0); MONOCYTES % (AUTO) 7 % (0-12); NEUTROPHILS # (AUTO) 4.3 10^3/uL (1.8-7.8); NEUTROPHILS % (AUTO) 82 % (42-75); PLATELET COUNT 413 10^3/uL (130-400); WHITE BLOOD COUNT 5.3 10^3/uL (4.3-11.0)
[2021-08-07 06:32] LABS: POTASSIUM 3.9 MMOL/L (3.6-5.0)
[2021-08-07 06:33] LABS: CALCIUM 8.1 MG/DL (8.5-10.1)
[2021-08-07 06:35] LABS: TOTAL PROTEIN 5.5 GM/DL (6.4-8.2)
[2021-08-07] MEDS: inSUlin ASPART (NovoLOG) 1 UNIT/0.01 ML (CHARGE PER UNIT) SC SCH ×4 (06:35→22:47)
[2021-08-07 06:36] LABS: BILIRUBIN,TOTAL 0.7 MG/DL (0.1-1.0)
[2021-08-07 06:38] LABS: CREATININE SERUM 0.61 MG/DL (0.60-1.30)
[2021-08-07] MEDS: KCL 10 MEQ TAB (MICRO K) PO SCH (06:40)
[2021-08-07] MEDS: guaiFENesin (MUCINEX) 600 MG TAB PO SCH ×2 (07:39→22:36)
[2021-08-07] MEDS: ONDANSETRON 4 MG/2 ML (SDV) Z0FRAN IV PRN (07:39)
[2021-08-07] MEDS: APIXABAN 5 MG (ELIQUIS) TABLET PO SCH ×2 (07:39→22:36)
[2021-08-07] MEDS: oxyCODONE ER 10 MG (OxyCONTIN CR) TAB PO SCH ×2 (07:39→22:36)
[2021-08-07] MEDS: FAMOTIDINE 20 MG (PEPCID) TABLET PO SCH ×2 (07:39→22:36)
[2021-08-07] MEDS: DOCUSATE SODIUM 100 MG (COLACE) CAP PO SCH ×2 (09:41→22:36)
[2021-08-07] MEDS: SENNOSIDES 8.6 MG (SENOKOT) TAB PO SCH ×2 (09:41→22:36)
[2021-08-07] MEDS: ACYCLOVIR 400 MG TABLET (ZOVIRAX) PO SCH ×2 (09:41→22:36)
--- NOTE | 2021-08-07 10:55 | Progress Note - Cardiology ---
Cardiology SOAP Progress Note Subjective: Gen weakness and malaise Shortness of breath with activity No cp or palp or syncope or swelling No n/v/d/ Objective: I&O/Vital Signs 08/07/21 08/07/21 08/07/21 08/07/21 00:04 01:00 02:44 04:00 Temp 36.0 36.0 Pulse 67 56 70 Resp 20 20 B/P (MAP) 158/84 154/70 Pulse Ox 93 92 94 O2 Delivery High Flow N/C Nasal Cannula High Flow N/C O2 Flow Rate 3.00 3.00 3.00 08/07/21 08/07/21 08/07/21 08/07/21 07:00 07:51 08:59 09:00 Temp 36.6 Pulse 60 57 Resp 20 B/P (MAP) 166/76 Pulse Ox 92 91 O2 Delivery High Flow N/C High Flow N/C High Flow N/C O2 Flow Rate 3.00 3.00 4.00 08/07/21 00:00 Intake Total 1470 ml Output Total 2025 ml Balance -555 ml Constitutional: AAO x 3, well-developed, well-nourished Respiratory: No accessory muscle use, No respiratory distress; chest expansion is symmetric, chest is bilaterally symmetric, other (diminished breath sounds throughout) Cardiovascular: regular rate-rhythm; No JVD; S1 and S2 Gastrointestional: No tender; soft, round, audible bowel sounds Extremities: no lower extremity edema bilateral Neurologic/Psychiatric: grossly intact (moves all extremities) Skin: No rash on exposed areas, No ulcerations on exposed areas Results/Procedures: Labs Laboratory Tests 08/06/21 16:20: Glucometer 146H 08/06/21 21:02: Glucometer 150H 08/07/21 05:57: White Blood Count 5.3, Red Blood Count 4.27, Hemoglobin 12.1, Hematocrit 37, Mean Corpuscular Volume 86, Mean Corpuscular Hemoglobin 28, Mean Corpuscular H emoglobin Concent 33, Red Cell Distribution Width 13.1, Platelet Count 413H, Me an Platelet Volume 9.6, Immature Granulocyte % (Auto) 1, Neutrophils (%) (Auto) 82H, Lymphocytes (%) (Auto) 11L, Monocytes (%) (Auto) 7, Eosinophils (%) (Auto) 0, Basophils (%) (Auto) 0, Neutrophils # (Auto) 4.3, Lymphocytes # (Auto) 0.6L, Monocytes # (Auto) 0.4, Eosinophils # (Auto) 0.0, Basophils # (Auto) 0.0, Immature Granulocyte # (Auto) 0.1, Sodium Level 140, Potassium Level 3.9, Chloride Level 106, Carbon Dioxide Level 22, Anion Gap 12, Blood Urea Nitrogen 11, Creatinine 0.61, Estimat Glomerular Filtration Rate 98, BUN/Creatinine Ratio 18, Glucose Level 138H, Calcium Level 8.1L, Corrected Calcium 8.9, Total Bilirubin 0.7, Aspartate Amino Transf (AST/SGOT) 20, Alanine Aminotransferase (ALT/SGPT) 44, Alkaline Phosphatase 54, Total Protein 5.5L, Albumin 3.0L Laboratory Tests 08/06/21 10:00 08/07/21 05:57 A/P: Assessment: PAF - first documented on tele of 08-04-21 - currently NSR COVID pneumonia - management per medical services Hypokalemia - replace HTN - controlled Hypothyroidism - replacement tx Tobaccoism - 1 cig/day - cessation advised Surgical hx - vaginal wall repair - cholecystectomy - hysterectomy Family h/o CAD - Mother, Father, Sister Plan: Continue Oral long-acting dilt and OAC Monitor labs and replace electrolytes as needed Management of COVID pneumonia is by the Hospitalist MAUREEN Lew MD FACP FAC CCDS Aug 07, 2021 10:55
--- NOTE | 2021-08-07 12:32 | Progress Note - Hospitalist ---
Subjective HPI/CC On Admission Date Seen by Provider: Aug 07, 2021 Time Seen by Provider: 11:20 Chief complaint: Acute hypoxic respiratory failure History of present illness: This is a 65-year-old white female who presented from [facility] due to their diversion status with shortness of breath and cough and fever. She is unvaccinated. She was placed on 4 L of oxygen with good results. She is on day #9 today of COVID. She was placed on protocol and will be monitored closely. Her cough is significant and she desats with cough and any activity. High risk for intubation. Subjective/Events-last exam She is still feeling short of breath with activity. She isn't feeling well enough to go home yet. She lives alone. Objective Exam Vital Signs Vital Signs Date Time Temp Pulse Resp B/P (MAP) Pulse Ox O2 Delivery O2 Flow Rate FiO2 08/07/21 11:42 36.6 62 20 180/74 93 High Flow N/C 4.00 08/06/21 12:16 32 Capillary Refill : Less Than 3 Seconds General Appearance: No Apparent Distress, Obese Respiratory: Lungs Clear, Normal Breath Sounds, No Respiratory Distress Cardiovascular: Regular Rate, Rhythm, No Murmur Gastrointestinal: Normal Bowel Sounds, Soft Extremity: Normal Inspection, Non Tender, No Pedal Edema Neurologic/Psychiatric: Alert, Normal Mood/Affect Skin: Normal Color, Warm/Dry Results/Procedures Lab Laboratory Tests 08/07/21 05:57 Patient resulted labs reviewed. Imaging: Reviewed Imaging Report Assessment/Plan Assessment and Plan Assess & Plan/Chief Complaint Acute respiratory failure due to COVID-19 Oxygen requirements improved Home oxygen eval with 4 L continuous and 8 with activity Decadron s/p Actemra Reassess oxygen tomorrow Paroxysmal atrial fibrillation Cardiology following Cardizem Eliquis HTN Hypothyroidism GERD Obesity AFib with RVR, resolved Diagnosis/Problems Diagnosis/Problems (1) Acute respiratory failure due to COVID-19 Status: Acute (2) Atrial fibrillation with RVR Status: Acute (3) HTN (hypertension) Status: Chronic (4) GERD (gastroesophageal reflux disease) Status: Chronic (5) Hypothyroidism Status: Chronic (6) Obesity Status: Chronic GABE SHARPE MD Aug 07, 2021 12:32
[2021-08-08] MEDS: RT-ALBUTEROL HFA 8.5 GM INHALER IH SCH ×2 (02:32→09:48)
[2021-08-08 05:58] LABS: BASOPHILS % (AUTO) 0 % (0-10); EOSINOPHILS % (AUTO) 0 % (0-10); HEMATOCRIT 37 % (35-52); HEMOGLOBIN 12.3 g/dL (11.5-16.0); LYMPHOCYTES # (AUTO) 0.6 10^3/uL (1.0-4.0); LYMPHOCYTES % (AUTO) 8 % (12-44); MEAN CORPUSCULAR HEMOGLOBIN 28 pg (25-34); MEAN CORPUSCULAR HGB CONC 33 g/dL (32-36); MEAN CORPUSCULAR VOLUME 86 fL (80-99); MEAN PLATELET VOLUME 9.7 fL (9.0-12.2); MONOCYTES # (AUTO) 0.4 10^3/uL (0.0-1.0); MONOCYTES % (AUTO) 6 % (0-12); NEUTROPHILS % (AUTO) 84 % (42-75); PLATELET COUNT 453 10^3/uL (130-400); WHITE BLOOD COUNT 7.1 10^3/uL (4.3-11.0)
[2021-08-08] MEDS: inSUlin ASPART (NovoLOG) 1 UNIT/0.01 ML (CHARGE PER UNIT) SC SCH ×2 (06:14→11:00)
[2021-08-08 06:21] LABS: ALBUMIN 2.9 GM/DL (3.2-4.5); BILIRUBIN,TOTAL 0.8 MG/DL (0.1-1.0); CALCIUM 8.1 MG/DL (8.5-10.1); CREATININE SERUM 0.61 MG/DL (0.60-1.30); POTASSIUM 3.9 MMOL/L (3.6-5.0); TOTAL PROTEIN 5.4 GM/DL (6.4-8.2)
[2021-08-08 06:36] LABS: EOSINOPHILS % (MANUAL) 1 %; LYMPHOCYTES % (MANUAL) 13 %; MONOCYTES % (MANUAL) 6 %; NEUTROPHILS % (MANUAL) 79 %; RBC MORPH NORMAL
[2021-08-08] MEDS: KCL 10 MEQ TAB (MICRO K) PO SCH (06:48)
[2021-08-08] MEDS ORDERED: amLODIPine 5 MG (NORVASC) TAB PO SCH (09:00)
[2021-08-08] MEDS: NS IV 1000 ML 1,000 ML IV SCH ×2 (09:38→09:47)
[2021-08-08] MEDS: SENNOSIDES 8.6 MG (SENOKOT) TAB PO SCH (09:39)
[2021-08-08] MEDS: guaiFENesin (MUCINEX) 600 MG TAB PO SCH (09:39)
[2021-08-08] MEDS: APIXABAN 5 MG (ELIQUIS) TABLET PO SCH (09:39)
[2021-08-08] MEDS: FAMOTIDINE 20 MG (PEPCID) TABLET PO SCH (09:39)
[2021-08-08] MEDS: DOCUSATE SODIUM 100 MG (COLACE) CAP PO SCH (09:39)
[2021-08-08] MEDS: ACYCLOVIR 400 MG TABLET (ZOVIRAX) PO SCH (09:39)
[2021-08-08] MEDS: oxyCODONE ER 10 MG (OxyCONTIN CR) TAB PO SCH (09:40)
[2021-08-08] MEDS ORDERED: AMLO-250 PO (11:27)
[2021-08-08] MEDS ORDERED: APIX5TAB PO (11:27)
[2021-08-08] MEDS ORDERED: ACYC400T21 PO (11:27)
[2021-08-08] MEDS ORDERED: DILT240C91 PO (11:27)
--- NOTE | 2021-08-08 12:10 | Progress Note - Cardiology ---
Cardiology SOAP Progress Note Subjective: To limit exposure to COVID-19, I did not go into the patient's room today. I examined him yesterday. Today I reviewed her VS and hospital notes and labs Objective: I&O/Vital Signs 08/08/21 08/08/21 08/08/21 08/08/21 00:14 01:00 02:32 03:50 Temp 36.4 36.5 Pulse 67 61 62 Resp 20 20 B/P (MAP) 153/82 137/77 Pulse Ox 93 96 93 O2 Delivery High Flow N/C High Flow N/C High Flow N/C O2 Flow Rate 4.00 4.00 4.00 08/08/21 08/08/21 08/08/21 08/08/21 07:00 08:13 11:47 11:53 Temp 36.5 36.7 Pulse 57 88 76 Resp 20 20 B/P (MAP) 175/80 160/82 Pulse Ox 90 93 93 O2 Delivery High Flow N/C High Flow N/C High Flow N/C O2 Flow Rate 4.00 3.00 3.00 08/08/21 00:00 Intake Total 2040 ml Output Total 3200 ml Balance -1160 ml Results/Procedures: Labs Laboratory Tests 08/07/21 16:38: Glucometer 143H 08/08/21 05:27: White Blood Count 7.1, Red Blood Count 4.34, Hemoglobin 12.3, Hematocrit 37, Mean Corpuscular Volume 86, Mean Corpuscular Hemoglobin 28, Mean Corpuscular Hemoglobin Concent 33, Red Cell Distribution Width 12.9, Platelet Count 453H, Mean Platelet Volume 9.7, Immature Granulocyte % (Auto) 2, Neutrophils (%) (Auto) 84H, Lymphocytes (%) (Auto) 8L, Monocytes (%) (Auto) 6, Eosinophils (%) (Auto) 0, Basophils (%) (Auto) 0, Neutrophils # (Auto) 6.0, Lymphocytes # (Auto) 0.6L, Monocytes # (Auto) 0.4, Eosinophils # (Auto) 0.0, Basophils # (Auto) 0.0, Immature Granulocyte # (Auto) 0.1, Neutrophils % (Manual) 79, Lymphocytes % (Manual) 13, Monocytes % (Manual) 6, Eosinophils % (Manual) 1, Blood Morphology Comment NORMAL, Sodium Level 138, Potassium Level 3.9, Chloride Level 107, Carbon Dioxide Level 21, Anion Gap 10, Blood Urea Nitrogen 10, Creatinine 0.61, Estimat Glomerular Filtration Rate 98, BUN/Creatinine Ratio 16, Glucose Level 152H, Calcium Level 8.1L, Corrected Calcium 9.0, Total Bilirubin 0.8, Aspartate Amino Transf (AST/SGOT) 21, Alanine Aminotransferase (ALT/SGPT) 41, Alkaline Phosphatase 51, Total Protein 5.4L, Albumin 2.9L 08/08/21 05:46: Glucometer 127H 08/08/21 10:58: Glucometer 116H Laboratory Tests 08/07/21 05:57 08/08/21 05:27 A/P: Assessment: PAF - first documented on tele of 08-04-21 - currently NSR COVID pneumonia - management per medical services Hypokalemia - replace HTN Hypothyroidism - replacement tx Tobaccoism - 1 cig/day - cessation advised Surgical hx - vaginal wall repair - cholecystectomy - hysterectomy Family h/o CAD - Mother, Father, Sister Plan: Continue Oral long-acting dilt and OAC Add low-dose beta-maria t for better bp control Monitor labs and replace electrolytes as needed Management of COVID pneumonia is by the Hospitalist MAUREEN Lew MD FACP FAC CCDS Aug 08, 2021 12:10
[2021-08-08 15:54] VITALS: BP 160/82
--- NOTE | 2021-08-08 16:53 | Discharge Summary ---
Discharge Summary Hospital Course Problems/Dx: (1) Acute respiratory failure due to COVID-19 Status: Acute (2) Atrial fibrillation with RVR Status: Acute (3) HTN (hypertension) Status: Chronic (4) GERD (gastroesophageal reflux disease) Status: Chronic (5) Hypothyroidism Status: Chronic (6) Obesity Status: Chronic Hospital Course Date of Admission: Aug 02, 2021 at 22:24 Admission Diagnosis : Acute respiratory failure due to COVID-19 Family Physician/Provider: [facility] Physician Date of Discharge: 08/08/21 Discharge Diagnosis: Acute respiratory failure due to COVID-19 Hospital Course: Soraida Ribeiro is a 65 year old female admitted with acute respiratory failure due to COVID-19. She was started on steroids. She was also started on antibiotics for possible secondary bacterial pneumonia. Her oxygen requirement increased. She was given Actemra. She required Vapotherm, but eventually her oxygen requirement improved. She was stable on nasal cannula. She was set up with home oxygen 4 L continuously and 8 L with exertion on discharge. Her course was complcated by AFib with RVR. Cardiology was consulted and assisted with her care. She was started on Eliquis and Diltiazem. She was discharged home in s table condition. She should follow up with her PCP. Labs and Pending Lab Test: Laboratory Tests 08/08/21 05:27: White Blood Count 7.1, Red Blood Count 4.34, Hemoglobin 12.3, Hematocrit 37, Mean Corpuscular Volume 86, Mean Corpuscular Hemoglobin 28, Mean Corpuscular Hemoglobin Concent 33, Red Cell Distribution Width 12.9, Platelet Count 453H, Mean Platelet Volume 9.7, Immature Granulocyte % (Auto) 2, Neutrophils (%) (Auto) 84H, Lymphocytes (%) (Auto) 8L, Monocytes (%) (Auto) 6, Eosinophils (%) (Auto) 0, Basophils (%) (Auto) 0, Neutrophils # (Auto) 6.0, Lymphocytes # (Auto) 0.6L, Monocytes # (Auto) 0.4, Eosinophils # (Auto) 0.0, Basophils # (Auto) 0.0, Immature Granulocyte # (Auto) 0.1, Neutrophils % (Manual) 79, Lymphocytes % (Manual) 13, Monocytes % (Manual) 6, Eosinophils % (Manual) 1, Blood Morphology Comment NORMAL, Sodium Level 138, Potassium Level 3.9, Chloride Level 107, Carbon Dioxide Level 21, Anion Gap 10, Blood Urea Nitrogen 10, Creatinine 0.61, Estimat Glomerular Filtration Rate 98, BUN/Creatinine Ratio 16, Glucose Level 152H, Calcium Level 8.1L, Corrected Calcium 9.0, Total Bilirubin 0.8, Aspartate Amino Transf (AST/SGOT) 21, Alanine Aminotransferase (ALT/SGPT) 41, Alkaline Phosphatase 51, Total Protein 5.4L, Albumin 2.9L 08/08/21 05:46: Glucometer 127H 08/08/21 10:58: Glucometer 116H Home Meds Active Amlodipine Besylate 5 Mg Tablet 5 Mg PO DAILY 30 Days Diltiazem 24Hr ER (Diltiazem HCl) 240 Mg Cap.er.24h 240 Mg PO DAILY 30 Days Eliquis (Apixaban) 5 Mg Tablet 5 Mg PO BID 30 Days Acyclovir 400 Mg Tablet 400 Mg PO BID 21 Days Reported Benadryl (Diphenhydramine HCl) 25 Mg Capsule 25-50 Mg PO Q6H PRN Levothyroxine Sodium 88 Mcg Tablet 88 Mcg PO DAILY Lisinopril 20 Mg Tablet 20 Mg PO DAILY Rabeprazole Sodium 20 Mg Tablet.dr 20 Mg PO DAILY Diazepam 2 Mg Tablet 2 Mg PO DAILY PRN Assessment/Pt Instructions Take medications as prescribed. Follow up with your PCP. Return with worsening symptoms. Discharge Planning: >30 minutes discharge planning Discharge Instructions Discharge Diet: No Restrictions Activity as Tolerated: Yes Consultations Cardiology Discharge Physical Examination Vital Signs Vital Signs Date Time Temp Pulse Resp B/P (MAP) Pulse Ox O2 Delivery O2 Flow Rate FiO2 08/08/21 15:54 36.7 66 20 160/82 93 High Flow N/C 3.00 08/06/21 12:16 32 General Appearance: No Apparent Distress, Obese Respiratory: Lungs Clear, Normal Breath Sounds, No Respiratory Distress Cardiovascular: Regular Rate, Rhythm, No Murmur Gastrointestinal: Normal Bowel Sounds, Soft Extremity: Normal Inspection, Non Tender, No Pedal Edema Skin: Normal Color, Warm/Dry Neurologic/Psychiatric: Alert, Oriented x3, No Motor/Sensory Deficits, Normal Mood/Affect Allergies: Coded Allergies: Penicillins (Verified Allergy, Unknown, 08/02/21) Sulfa (Sulfonamide Antibiotics) (Verified Allergy, Unknown, 08/02/21) erythromycin base (Verified Allergy, Unknown, 08/02/21) morphine (Verified Allergy, Unknown, 08/02/21) Discharge Summary Date of Admission Aug 02, 2021 at 22:24 Date of Discharge Aug 08, 2021 at 15:56 Discharge Date: Aug 08, 2021 Discharge Time: 15:56 Admission Diagnosis Acute respiratory failure due to COVID-19 Consults/Procedures Consulations Cardiology Discharge Diagnosis Acute respiratory failure due to COVID-19 (1) Acute respiratory failure due to COVID-19 Status: Acute (2) Atrial fibrillation with RVR Status: Acute (3) HTN (hypertension) Status: Chronic (4) GERD (gastroesophageal reflux disease) Status: Chronic (5) Hypothyroidism Status: Chronic (6) Obesity Status: Chronic GABE SAHRPE MD Aug 08, 2021 16:52
== END 2021-08-08 15:56 | disposition home or self-care (01) | DRG 177 ==
LOC: CSD 22:24 → 4TH 08-05 17:09
PROVIDERS: ADMIT Internal Medicine; ATTEND Internal Medicine
DX: U07.1 COVID-19 (principal); J96.01 Acute respiratory failure with hypoxia; J15.9 Unspecified bacterial pneumonia; I10 Essential (primary) hypertension; K21.9 Gastro-esophageal reflux disease without esophagitis; E03.9 Hypothyroidism, unspecified; E66.9 Obesity, unspecified; Z68.32 Body mass index [BMI] 32.0-32.9, adult; I48.0 Paroxysmal atrial fibrillation; Z88.0 Allergy status to penicillin; Z88.1 Allergy status to other antibiotic agents; Z88.2 Allergy status to sulfonamides; Z88.5 Allergy status to narcotic agent; Z87.891 Personal history of nicotine dependence; F41.9 Anxiety disorder, unspecified; F32.A Depression, unspecified; E87.6 Hypokalemia; Z82.49 Family history of ischemic heart disease and other diseases of the circulatory system; Z73.0 Burn-out
CPT/HCPCS: 36415; 36600; 71045; 80053; 82805; 82947; 83735; 84443; 85007; 85025; 85027; 85379; 93306; 94640; 94760; 94761